=== PATIENT | female | born 1965 | race Caucasian/White ===

== ENCOUNTER → 2021-03-22 | Outpatient (CLI) | payer OTHER | END | disposition home or self-care (01) | LOC: PREOP 05:38 | PROVIDERS: ATTEND Obstetrics & Gynecology | DX: Z01.818 Encounter for other preprocedural examination (principal) ==

== ENCOUNTER 2021-06-28 05:34 | Outpatient (CLI) | payer OTHER ==
[~2021-06-28] VITALS: Ht 162.6 cm; Wt 90.8 kg
[2021-06-28] MEDS ORDERED: MAGN400T39 PO (13:01)
[2021-06-28] MEDS ORDERED: CHOL100048 PO (13:01)
[2021-06-28] MEDS ORDERED: ATOR10TA PO (13:01)
[2021-06-28] MEDS ORDERED: CYAN500T8 PO (13:01)
[2021-06-28] MEDS ORDERED: VITA1TAB17 PO (13:01)
[2021-06-28] MEDS ORDERED: POTA-51 PO (13:01)
[2021-07-01] MEDS ORDERED: LISI10TA25 PO (08:27)
== END 2021-06-28 13:18 | disposition home or self-care (01) ==
LOC: PREOP 05:34
PROVIDERS: ATTEND Obstetrics & Gynecology
DX: Z01.818 Encounter for other preprocedural examination (principal)

== ENCOUNTER 2021-07-05 06:07 | Day surgery (SDC) | payer OTHER ==
[2021-07-05] VITALS (13 sets, daily range): BP systolic 109–134; BP diastolic 64–87
[~2021-07-05] VITALS: Ht 162 cm; Wt 90.8 kg
[~2021-07-05 06:07] MED LIST: ATOR10TA PO; CHOL100048 PO; CYAN500T8 PO; LISI10TA25 PO; MAGN400T39 PO; POTA-51 PO; VITA1TAB17 PO
[2021-07-05] MEDS ORDERED: ceFAZolin 2 GM IV Premixed 50 ML IV ONE (06:15)
[2021-07-05] MEDS ORDERED: metroNIDAZOLE 500MG/100ML IVPB 100 ML IV ONE (06:15)
[2021-07-05 06:44] LABS: BILIRUBIN,URINE NEGATIVE (NEGATIVE); CLARITY,URINE CLEAR; COLOR,URINE YELLOW; GLUCOSE, URINE (UA) NEGATIVE (NEGATIVE); KETONES,URINE NEGATIVE (NEGATIVE); LEUKOCYTE ESTERASE ,URINE NEGATIVE (NEGATIVE); NITRITE,URINE NEGATIVE (NEGATIVE); PROTEIN,URINE NEGATIVE (NEGATIVE)
[2021-07-05] MEDS: LACTATED RINGERS 1,000 ML IV PRN ×3 (06:46→10:23)
[2021-07-05 07:01] LABS: BASOPHILS % (AUTO) 1 % (0-10); EOSINOPHILS # (AUTO) 0.1 10^3/uL (0.0-0.3); EOSINOPHILS % (AUTO) 2 % (0-10); HEMATOCRIT 44 % (35-52); HEMOGLOBIN 15.3 g/dL (11.5-16.0); LYMPHOCYTES # (AUTO) 1.7 10^3/uL (1.0-4.0); LYMPHOCYTES % (AUTO) 26 % (12-44); MEAN CORPUSCULAR HEMOGLOBIN 33 pg (25-34); MEAN CORPUSCULAR HGB CONC 35 g/dL (32-36); MEAN CORPUSCULAR VOLUME 95 fL (80-99); MONOCYTES # (AUTO) 0.5 10^3/uL (0.0-1.0); MONOCYTES % (AUTO) 9 % (0-12); NEUTROPHILS # (AUTO) 3.9 10^3/uL (1.8-7.8); NEUTROPHILS % (AUTO) 62 % (42-75); PLATELET COUNT 253 10^3/uL (130-400); WHITE BLOOD COUNT 6.3 10^3/uL (4.3-11.0)
[2021-07-05] MEDS ORDERED: fentaNYL INJ 100 MCG/2 ML AMP ONE (07:05)
[2021-07-05] MEDS ORDERED: LIDOCAINE PF 2% 5 ML (XYLOCAINE) VIAL ONE (07:05)
[2021-07-05] MEDS ORDERED: MIDAZOLAM 2 MG/2 ML (VERSED) VIAL ONE (07:05)
[2021-07-05] MEDS ORDERED: ONDANSETRON 4 MG/2 ML (SDV) Z0FRAN ONE (07:05)
[2021-07-05] MEDS ORDERED: proPOfol 200 MG/20 ML (DIPRIVAN) VIAL IV ONE (07:05)
[2021-07-05] MEDS ORDERED: ROCURONIUM 10 MG/ML 5 ML SYRINGE IV ONE ×2 (07:05→09:08)
[2021-07-05 07:11] LABS: BACTERIA,URINE NEGATIVE /HPF
--- NOTE | 2021-07-05 07:43 | Progress Note-Pre Operative ---
Pre-Operative Progress Note H&P Reviewed The H&P was reviewed, patient examined and no changes noted. Date Seen by Provider: Jul 05, 2021 Time Seen by Provider: 07:40 Date H&P Reviewed: Jul 05, 2021 Time H&P Reviewed: 07:30 Pre-Operative Diagnosis: incomplete urogenital prolapse, fibroids, abnormal uterine bleeding, VANIA BING REEVES DO Jul 05, 2021 07:43
[2021-07-05] MEDS ORDERED: INDIGO CARMINE 8 MG/ML 5 ML AMP ONE (10:43)
[2021-07-05] MEDS ORDERED: KETOROLAC 30 MG/ML VIAL ONE (11:09)
[2021-07-05] MEDS ORDERED: SEVOFLURANE (ULTANE) 15 ML INHAL SOLN ONE (11:15)
[2021-07-05] MEDS ORDERED: HYDROmorphone 2 MG/ML VIAL (DILAUDID) ONE (11:34)
[2021-07-05] MEDS ORDERED: PROMETHAZINE INJ 25 MG/ML (PHENERGAN) AMP IVP ONE (11:45)
[2021-07-05] MEDS ORDERED: ONDANSETRON 4 MG/2 ML (SDV) Z0FRAN IVP PRN (11:45)
[2021-07-05] MEDS ORDERED: morphine INJ 10 MG/ML 1ML (SYR OR VIAL) IVP ONE (11:45)
[2021-07-05] MEDS ORDERED: HYDROmorphone 2 MG/ML VIAL (DILAUDID) IV ONE (11:45)
[2021-07-05] MEDS ORDERED: MEPERIDINE (DEMEROL) INJ 50 MG/ML IVP ONE (11:45)
[2021-07-05] MEDS ORDERED: morphine INJ 10 MG/ML 1ML (SYR OR VIAL) IVP STA (12:48)
[2021-07-05] MEDS ORDERED: NALOXONE 0.4 MG/ML 1 ML (NARCAN) VIAL IV PRN (13:15)
[2021-07-05] MEDS ORDERED: morphine INJ 4 MG/ML 1 ML (VIAL/SYRINGE) IV PRN (13:15)
[2021-07-05] MEDS ORDERED: CHLORASEPTIC LOZENGE MM PRN (13:15)
[2021-07-05] MEDS ORDERED: ONDANSETRON 4 MG (ZOFRAN) ORAL DISSOLVE TAB PO PRN (13:15)
--- NOTE | 2021-07-05 13:15 | Operative Report ---
Operative Report Date of Procedure/Surgery Jul 05, 2021 Surgeon (s) BING REEVES DO Seismic Survey Assistant (s): Fatemeh Smith, MS III Post-Operative Diagnosis uterine fibroids, right hemorrhagic ovarian cyst and serous cyst ovarian nodularity bilaterally 2+ cystocele + VANIA 3+ rectocele Procedure Performed [facility]SO Anterior posterior colporrhaphy desura PV sling Description of Procedure Anesthesia Type: General Estimated blood loss (mL): 100 Specimen(s) collected/removed uterus, tubes and ovaries 254 grams Description of the Procedure With informed consent the patient was taken to the operating room where general anesthesia was found to be adequate. She was then prepped and draped in the usual sterile fashion in the dorsolithotomy position. A Yates catheter was placed. Findings are as above. A speculum was placed in the vagina. There was a large cystocele with smaller rectocele. The cervix was visualized and the anterior lip was grasped with a sharp toothed tenaculum. The uterus was sounded and depth was approximately 10 centimeters. I placed the Brenda device (10 cm) and a 3.0 cm collar was advanced over the cervix. I inserted the Brenda without difficulty, inflating the balloon and securing it around the fornix of the cervix. The collar was then secured with sutures at 12 o'clock. Attention was then turned to the patient's abdomen. A supraumbilical incision was made about 8 mm. A Veress needle was inserted and I confirmed intraabdominal placement with a drop in pressure and the saline drop test. The opening pressure was 6 mmHg. I then insufflated the abdomen to a maximum of 15 mmHg with warmed CO2 gas. I placed an additional 8 mm trocar in the left abdomen approximately 15 cm lateral to the umbilicus . The second robotic port was placed about 12 cm lateral to the right midline trocar placement. This was an 8 mm trocar. These were placed under direct visualization of the laparoscope. 0.25% Marcaine was injected prior to placement of all trocars. I then placed an additional 10-12 mm trocar in the RUQ under direct visualization to provide a port for the research assistant. When all placements were confirmed, the patient was placed in steep Trendelenburg allowing adequate visualization and the robot was brought in for docking. The docking was accomplished without difficulty. I then took over the command of the robot utilizing the vessel sealer and monopolar makayla. I was able to visualize the round ligaments bilaterally and grasped them and cauterized with bipolar cautery and then cut with my makayla. At this point, I then did bilateral salpingectomy. I incised the mesosalpinx with the makayla. Then, I grasped with cornu and transected bilaterally using the vessel sealer. The uterus was very boggy and irregular in shape. Initially I did salpingectomy and then, due to scarring and complex cysts in a 55 year old female, I opted to to an oophorectomy bilaterally. I grasped the infundibulopelvic ligaments bilaterally, clamped and transected with the vessel sealer. I took great care to visualize the ureters bilaterally. I then moved my dissection to the posterior leaves of the broad ligament. I dissected the posterior leaves of the broad ligament off the uterine arteries skeletonizing them bilaterally. I then took a second clamp with the bipolar cautery and with the makayla, transected the vessels away from the lateral aspect to the cervical stroma. I dissected the anterior peritoneum off the lower uterine segment. I continually pushed the bladder back and I took excessively great care and I was eventually able to dissect the vesicouterine peritoneum off the lower uterine segment. I then dissected in a V fashion towards the midline between the uterosacral lig aments. This allowed me to skeletonize the uterine vessels bilaterally. The balloon on the BRENDA was insufflated. This allowed me to see the BRENDA circumferentially. I then performed a colpotomy anteriorly and then amputate with cervix away from the vaginal fornix. I then continued the colpotomy circumferentially. Once this was performed, the research assistant removed the uterus, tubes and ovaries through the vagina. The uterus had to be maneuvered to remove this due to the size and shape. She then left a sponge in the vagina to maintain the pneumoperitoneum. . I then began closure of the vaginal cuff. I closed the apices of the vaginal cuff with 2-0 Vicryl V lock sutures with a colposuspension through the uterosacral ligaments. This suspended the apices of the vaginal cuff. I extended this to the midline from both sides and overlapped the V lock sutures in the midline. Excellent closure is noted and hemostasis is achieved. I now turned attention to the vaginal portion and the patient was repositioned. The anterior vaginal mucosa was injected with dilute vasopressin and then incised in the midline. the vaginal epithelium was dissected off of the pubovaginal fascia laterally to the white line. I then began pilcation of the large cystocele with 2-0 vicryl in the midline. Due to the large cystocele, I did this in two layers. I then performed a Desura pubovaginal sling in standard fashion bilaterally. cystoscopy was now performed and there was no pathology noted and there was efflux of bilateral ureters. Excess vaginal epithelium was then excised and the skin closed with 2-0 Vicryl in a running fashion. Then, I grasped the perineum on either side of the midline with the marco clamps. I then injected the posterior epithelium with the dilute vasopressin and then made a midline incision I undermined the posterior vaginal epithelium and then dissected this off of the pubovaginal fascia laterally. I then reduced the rectocele with interrupted figure of eight style 2-0 Vicryl sutures. This adequately reduced the rectocele. I then trimmed the vaginal epithelium and then closed the defect with 2-- Vicryl in a running fashion. The vagina was then packed with Estrace cream and vaginal packing. Sponge, lap, needle and instrument counts correct times two. Patient was awakened and taken to recovery in a stable condition. Findings of the Procedure enlarged boggy irregular uterus 2+ cystocele 3+ rectocele complex right ovarian cyst, hemorrhagic and serous nodularity on bilateral ovaries Allergies and Home Medications Allergies Coded Allergies: Sulfa (Sulfonamide Antibiotics) (Verified Allergy, Unknown, 07/05/21) Patient Home Medication List Home Medication List Reviewed: Yes Acetaminophen (Acetaminophen) 500 Mg Tablet, 1,000 MG PO Q8HR Prescribed by: BING REEVES on 07/05/212212 Benzocaine/Menthol (Dermoplast Pain Relieving [place]) 78 Gm Aerosol, 0 EA TP TID PRN for perineal pain Prescribed by: BING REEVES on 07/05/212212 Cholecalciferol (Vitamin D3) (Vitamin D3) 25 Mcg Capsule, 25 MCG PO DAILY, (Reported) Entered as Reported by: CHRIS CRUZ on 06/28/21 1301 Last Action: Reviewed Cyanocobalamin (Vitamin B-12) (Vitamin B-12) 500 Mcg Tablet, 500 MCG PO DAILY, (Reported) Entered as Reported by: CHRIS CRUZ on 06/28/211300 Last Action: Reviewed Ibuprofen (Ibu) 600 Mg Tablet, 600 MG PO Q6HR Prescribed by: BING REEVES on 07/05/212212 Lisinopril (Lisinopril) 10 Mg Tablet, 10 MG PO DAILY, (Reported) Entered as Reported by: SLADE ROBLES on 07/01/21826 Last Action: Last Taken Edited Magnesium Oxide (Magnesium) 400 Mg Tablet, 400 MG PO DAILY, (Reported) Entered as Reported by: CHRIS CRUZ on 06/28/211300 Last Action: Reviewed Oxycodone Hcl (Oxyir Tablet) 5 Mg Tab, 5 MG PO Q4HR PRN for PAIN-SEE DOSE INSTRUCTIONS Prescribed by: BING REEVES on 07/05/212213 Potassium Chloride (Potassium Chloride) 20 Meq Tablet.er, 20 MEQ PO DAILY, (Reported) Entered as Reported by: CHRIS CRUZ on 06/28/211300 Last Action: Reviewed Sennosides/Docusate Sodium (Stool Softener-Laxative Tablet) 1 Each Tablet, 2 EA PO HS Prescribed by: BING REEVES on 07/05/212212 Vitamin B Complex (Vitamin B Complex) 1 Each Tablet, 1 EACH PO DAILY, (Reported) Entered as Reported by: CHRIS CRUZ on 06/28/211300 Last Action: Reviewed BING REEVES DO Jul 05, 2021 13:15
[2021-07-05] MEDS ORDERED: BENZOCAINE/MENTHOL (DERMOPLAST) 56 ML CAN TP PRN (13:30)
[2021-07-05] MEDS: ACETAMINOPHEN 500 MG TAB (TYLENOL) PO SCH ×2 (14:53→23:07)
[2021-07-05] MEDS: LACTATED RINGERS 1,000 ML IV SCH ×2 (14:54→23:07)
[2021-07-05] MEDS: KETOROLAC 30 MG/ML VIAL IV SCH ×2 (17:05→23:06)
[2021-07-05] MEDS: SIMETHICONE 80 MG (MYLICON) CHEW PO PRN (20:30)
[2021-07-05] MEDS ORDERED: SENNA W/DOCUSATE (SENOKOT S) TABLET PO SCH (21:00)
[2021-07-05] MEDS ORDERED: OXC5T PO (22:13)
[2021-07-05] MEDS ORDERED: BENZ78AE5 TP (22:13)
[2021-07-05] MEDS ORDERED: SENN1TAB76 PO (22:13)
[2021-07-05] MEDS ORDERED: ACET-93 PO (22:13)
[2021-07-05] MEDS ORDERED: IBUP-844 PO (22:13)
--- NOTE | 2021-07-05 22:16 | Discharge Inst-Women's Service ---
Discharge Inst-Women's Serv Depart Medication/Instructions New, Converted or Re-Newed RX: Transmitted to Pharmacy Instructions no heavy lifting keep stools soft no driving for 1 week Final Diagnosis incomplete uterovaginal prolapse rectocele stress incontinence Problems Reviewed?: Yes Consults/Follow Up Additional Follow Up: Yes (1-2 weeks and 8-10 weeks) Activity Activity: Activity as Tolerated Driving Instructions: No Driving for 1 Week NO SMOKING: NO SMOKING Nothing Inside Vagina: No Douching, No Dunstan, No Tampons Diet Discharge Diet: No Restrictions Symptoms to Report to : Swelling Increased, Bleeding Excessive, Pain Increased, Fever Over 101 Degrees F, Vaginal Bleeding Increase, Cramps in Feet or Legs, Vaginal Discharge Foul For Any Problems or Questions: Contact Your Physician Skin/Wound Care Infection Signs and Symptoms: Increased Redness, Foul Odor of Wound, Increased Drainage, Skin Itchy or Has a Rash, Increased Swelling, Temperature Above 101 F Operative Area Clean and Dry: You May Remove Bandage (on ) Stitches/Cristian/Dermabond: Dermabond Bathing Instructions: BING Pena DO Jul 05, 2021 22:16
[2021-07-06 04:20] VITALS: BP 118/56
[2021-07-06] MEDS: SIMETHICONE 80 MG (MYLICON) CHEW PO PRN (05:15)
[2021-07-06] MEDS: KETOROLAC 30 MG/ML VIAL IV SCH ×2 (05:15→11:53)
[2021-07-06] MEDS: LACTATED RINGERS 1,000 ML IV SCH (08:30)
[2021-07-06] MEDS: ACETAMINOPHEN 500 MG TAB (TYLENOL) PO SCH (08:31)
--- NOTE | 2021-07-06 08:49 | Anesthesia-General Post-Op ---
General Patient Condition Mental Status/LOC: Same as Preop Cardiovascular: Satisfactory Nausea/Vomiting: Absent Respiratory: Satisfactory Pain: Controlled Complications: Absent Post Op Complications Complications None Follow Up Care/Instructions Patient Instructions None needed. Anesthesia/Patient Condition Patient Condition Patient is doing well, no complaints, stable vital signs, no apparent adverse anesthesia problems. No complications reported per nursing. D/C home per [facility] [place] Criteria: Yes KENNY LOPES CRNA Jul 06, 2021 08:49
[2021-07-06] MEDS ORDERED: lisINopril 10 MG (PRINIVIL) TABLET PO SCH (09:00)
[2021-07-06 12:05] VITALS: BP 101/59
[2021-07-06] MEDS ORDERED: IBUPROFEN 600 MG (MOTRIN) TAB PO SCH (18:00)
== END 2021-07-06 12:15 | disposition home or self-care (01) ==
LOC: SDC 06:07 → WS 12:35 → SDC 07-06 12:15
PROVIDERS: ATTEND Obstetrics & Gynecology
DX: D25.1 Intramural leiomyoma of uterus (principal); D25.0 Submucous leiomyoma of uterus; N81.6 Rectocele; N81.2 Incomplete uterovaginal prolapse; N83.292 Other ovarian cyst, left side; N83.291 Other ovarian cyst, right side; N83.8 Other noninflammatory disorders of ovary, fallopian tube and broad ligament; N93.9 Abnormal uterine and vaginal bleeding, unspecified; N39.3 Stress incontinence (female) (male); I10 Essential (primary) hypertension; F17.210 Nicotine dependence, cigarettes, uncomplicated; Z79.891 Long term (current) use of opiate analgesic; Z79.899 Other long term (current) drug therapy; Z90.89 Acquired absence of other organs; Z98.51 Tubal ligation status; Z80.49 Family history of malignant neoplasm of other genital organs
CPT/HCPCS: 57260; 57288; 58571; 81000; 84703; 85025; 86850; 86900; 86901; 87081; 88307; 94664; C1771; 36415